=== PATIENT | male | born 1955 | race Two or more races ===

== ENCOUNTER 2025-01-17 20:04 | Emergency (ER) | payer MEDICARE, BC ==
[~2025-01-17] VITALS: Ht 175.3 cm; Wt 90.7 kg
[2025-01-17 21:03] VITALS: TEMP 98.5
[2025-01-17] MEDS ORDERED: ONDANSETRON HCL/PF 4 MG/2 ML VIAL ONE ×2 (21:20→22:43)
[2025-01-17] MEDS: ONDANSETRON HCL/PF 4 MG/2 ML VIAL IVP ONE (21:23)
[2025-01-17 21:37] LABS: PLATELET COUNT (AUTO) 146 K/uL (150-450); RED BLOOD CELL COUNT(AUTO) 6.06 MIL/uL (4.5-6.0); RED CELL DISTRIBUTION WIDTH 13.6 % (11.5-15.0); WHITE BLOOD COUNT (AUTO) 12.4 K/uL (4.3-11.0)
[2025-01-17 21:49] LABS: CALCIUM, SERUM 9.1 mg/dL (8.5-10.1); CREATININE 1.0 mg/dL (0.6-1.3); SODIUM SERUM 141.0 mmol/L (136-145); UREA NITROGEN, BLOOD 23.0 mg/dL (7-18)
[2025-01-17 21:49] LABS: APPEARANCE,URINE CLEAR (CLEAR); BLOOD, URINE NEGATIVE Ery/uL (NEGATIVE); LEUKOCYTE ESTERASE ,URINE NEGATIVE (NEGATIVE); NITRITE, URINE NEGATIVE (NEGATIVE); UGLUCOSE NEGATIVE (NEGATIVE)
[2025-01-17 21:54] LABS: ASPARTATE AMINOTRANSFERASE 19.0 U/L (15-37); TOTAL PROTEIN, SERUM 7.6 g/dL (6.4-8.2)
[2025-01-17 21:58] LABS: ADD URINE CULTURE NO; SQUAMOUS EPITHELIAL CELL,UR None Seen /HPF (None Seen)
[2025-01-17] MEDS: ONDANSETRON HCL/PF - ER 4 MG/2 ML VIAL IV ONE (22:50)
[2025-01-17] MEDS: IV NS 0.9% 1,000 ML IV ONE (22:50)
[2025-01-18] MEDS ORDERED: PANT20TA2 PO (00:30)
[2025-01-18] MEDS ORDERED: ONDA4TAB5 PO (00:30)
[2025-01-18 00:41] VITALS: BP 124/79; O2SAT 97
== END 2025-01-18 00:42 | disposition home or self-care (01) ==
LOC: ER 20:09
DX: R10.9 Unspecified abdominal pain (principal); R11.2 Nausea with vomiting, unspecified; Z79.899 Other long term (current) drug therapy
CPT/HCPCS: 99285; 74176; 96374; 71045; 96361; 93005; 85025; 80048; 83690; 80076; 81001; 36415; J2405 ×3; J7030